=== PATIENT | female | born 1940 | race Caucasian/White ===

== ENCOUNTER 2022-12-30 12:43 | Outpatient (AMB) | payer MEDICARE, SELFPAY ==
--- NOTE | 2022-12-30 15:10 | AM.OFFWIN_ITS ---
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 Pt states she has had 2 episodes since Friday.Pt states she has also had back pain for a few weeks as well. 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 patient has a past medical history significant for COPD, congestive heart failure, an irregular heartbeat, and lung cancer. She has a surgical history significant for a lower right lobe lobectomy of the lung. She does not have an established primary care physician. Patient is new to this medical facility, she reports dyspnea on exertion x5 days. Patient states she 1st noticed the shortness of breath when she was outside gardening, patient states she felt chest tightness and it took 45 minutes for her to returned to baseline. The following day the patient tried exercise on a bicycle in which she was only able to tolerate 4 minutes of exercise with no resistance. she gets little relief with for her prescribed Incruse Ellipta inhaler. [facility] Social History Household Members: Children Housing: House Alcohol intake: current Alcohol intake frequency: 0-2 drinks per day Patient Tobacco Use Status: Never used Tobacco Review of Systems Const Denies body aches, Denies fever(s) and Denies weakness ENT Denies otalgia, Denies nasal congestion and Denies nasal discharge Card Denies chest pain, Denies leg edema, Reports dyspnea on exertion and Denies orthopnea Resp Reports as per HPI and Reports dyspnea on exertion Neuro Denies weakness Physical Exam Vital Signs: Last Vital Signs Temp 97.5 F 12/30/22 15:11 Pulse 64 12/30/22 15:11 BP 116/62 12/30/22 15:11 Pulse Ox 94 12/30/22 15:11 Oxygen Delivery Method Room Air 12/30/22 15:11 BMI result Body Mass Index 21.8 Const General: cooperative and no acute distress Orientation/consciousness: patient oriented x3 Limitations: no limitations HEENT Head: Yes normal to inspection Ears: TM's normal bilaterally General nose exam: No nasal discharge present Face and sinus: Yes normal facial exam Mouth: Normal oral and palatal mucosa present Neck Neck: Yes no lymphadenopathy Resp Effort & Inspection: normal respiratory effort and able to speak in complete sentences Auscultation: diminished lung sounds Cardio Jugular venous distension: no JVD Rate: bradycardic Rhythm: regular rhythm Neuro General: patient oriented x3 Office Procedures EKG Details: sinus bradycardia, 55 beats per minute, otherwise normal EKG. Results reviewed by supervising physician. [id number], Complete Nebulizer Treatment Nebulizer Treatment [id number]/MDI RX initial, or Nebulizer Subsequent Treatment Office Meds albuterol sulfate 2.5 mg/3 mL (0.083 %) solution for nebulization Performing Provider: NICA Schwab Performing Location: [facility] Administered by: NICA Schwab on 12/30/22 16:17 Dose Route Admin Location Dispensed Lot Number Expiration Date NDC [employer] 2.5 mg inhalation 3 mL [id number] 05/04/24 Assessment & Plan Assessment & Plan (1) COPD exacerbation: Code(s): J44.1 - Chronic obstructive pulmonary disease with (acute) exacerbation Plan: Patient's oxygen improved from 94% to 97% after nebulizer treatment. Patient will be given albuterol inhaler to be used at home q.6 as needed, will be given short dose prednisone, and will be given a course of azithromycin. Patient educated on side effects of medication. Patient instructed that if symptoms worsen or do not improve in 2 days she needs to present to the ER. Orders: Orders AMB Nebulizer Treatment Today R06.09 - Other forms of dyspnea AMB EKG-In Office Today R06.02 - Shortness of breath XR chest 2V Today R06.09 - Other forms of dyspnea Medications: New albuterol sulfate 90 mcg/actuation 2 puffs inhalation Q6H PRN 6.7 grams 0RF shortness of breath or wheezing azithromycin For 250 mg dose pack: take 500 mg today (day 1), then 250 mg for 4 days (days 2-5) PO 6 tabs 0RF prednisone 40 mg (2 x 20 mg) PO DAILY 10 tabs 0RF Coding Level of Care Code New Pt Level 4 (16494) Diagnoses COPD exacerbation J44.1 CPT Codes EKG - CPT: 72102-[id number], Complete ([id number]) Nebulizer Treatment - Nebulizer Treatment, initial or subsequent: [id number]- Nebulizer/MDI RX initial, or Nebulizer Subsequent Treatment ([id number]) Time Spent (min) 45
[2022-12-30 15:11] VITALS: BP 116/62; PULSE 64; TEMP 36.4; O2SAT 94; BMI 21.8
== END 2022-12-30 16:30 | disposition home or self-care (01) ==
PROVIDERS: PCP Nurse Practitioner Family; Visit Provider Nurse Practitioner Primary Care
DX: R06.09 Other forms of dyspnea (principal); J44.1 Chronic obstructive pulmonary disease with (acute) exacerbation
CPT/HCPCS: 93000; 94640; 99204; J7613

== ENCOUNTER 2022-12-30 15:46 | Outpatient (REF) | payer MEDICARE, SELFPAY ==
--- NOTE | ~2022-12-30 | XR_ITS ---
EXAMINATION: XR CHEST CLINICAL INFORMATION: Other forms of dyspnea. COMPARISON: Chest radiograph of 07/17/2006 TECHNIQUE: 2 views of the chest were obtained. FINDINGS: Lungs remain hyperinflated. There is no gross pneumothorax. Increased asymmetric hazy opacities at the lung apices, right greater than left with biapical pleural thickening. Volume loss in the right hemithorax. Right costophrenic angle blunting may represent pleural fluid or thickening. Mild bibasilar opacities may represent atelectasis/scar versus pneumonia. Degenerative changes in the thoracic spine. XR/XR chest 2V IMPRESSION: Increased asymmetric hazy opacities at the lung apices, right greater than left with biapical pleural thickening. Volume loss in the right hemithorax. Right costophrenic angle blunting may represent pleural fluid or thickening. Mild bibasilar opacities may represent atelectasis/scar versus pneumonia. CT scan of the chest recommended for further evaluation.
== END 2022-12-30 15:47 | disposition home or self-care (01) ==
LOC: HO.HMGCX 15:46
PROVIDERS: PCP Nurse Practitioner Family; Visit Provider Nurse Practitioner Primary Care
DX: R06.09 Other forms of dyspnea (principal)
CPT/HCPCS: 71046